=== PATIENT | male | born 1965 | race Caucasian/White ===

== ENCOUNTER 2020-08-24 12:47 | Emergency (ER) | payer MEDICAID ==
[~2020-08-24] VITALS: Ht 180.3 cm; Wt 75.0 kg
--- NOTE | 2020-08-24 15:31 | NUR ---
PT AMB WITH STEADY GAIT TO FAST TRACK
--- NOTE | 2020-08-24 15:41 | NUR ---
PROVIDER AT BEDSIDE
[2020-08-24] MEDS ORDERED: acetaminophen 325mg tablet PO ONE (15:50)
--- NOTE | 2020-08-24 15:54 | NUR ---
PT C/O BURNING WITH URINATION AND URGENCY X2DAYS, HAS NOT BEEN DRINKING WATER BECAUSE IT HURTS TO URINATE, NO FEVER/CHILL, NO N/V, BLADDER SCAN DONE, HAS 450ML IN BLADDER, GAVE PT WATER TO DRINK, PT IS AWARE UA IS NEEDED
[2020-08-24 16:14] VITALS: BP 124/84
--- NOTE | 2020-08-24 16:26 | NUR ---
PT UNABLE TO URINATE, GAVE HIM MORE WATER TO DRINK
--- NOTE | 2020-08-24 18:26 | NUR ---
pt attempting to urinate again
--- NOTE | 2020-08-24 18:41 | NUR ---
inserted anderson with sterile technique, cloudy yellow urine out, sample sent to lab
[2020-08-24 19:06] LABS: CLARITY,URINE SLIGHTLY CLOUDY (Clear); COLOR,URINE YELLOW (Yellow); GLUCOSE, URINE NEGATIVE (Neg); KETONES,URINE NEGATIVE (Neg); LEUKOCYTE ESTERASE ,URINE SMALL (Neg); NITRITES, URINE POSITIVE (Neg); OCCULT BLOOD,URINE LARGE (Neg); PH,URINE 6.5 (4.8-8.0); PROTEIN,URINE TRACE mg/dl (Neg)
[2020-08-24 19:10] LABS: UA COLLECTION TYPE OTHER
[2020-08-24 19:36] LABS: WBC,URINE 50-100 /HPF (0-4)
[2020-08-24 19:37] LABS: BACTERIA,URINE 4+ /HPF (Neg); MUCUS STRANDS MODERATE /LPF (Neg); SPERM FEW /HPF (NEGATIVE); SQUAMOUS EPITHELIAL CELL,UR FEW /LPF (FEW)
[2020-08-24] MEDS ORDERED: CefTRIAXone 1000mg IM Kit (w/lidocaine diluent) IM STA (19:53)
[2020-08-24] MEDS ORDERED: azithromycin 250mg tablet PO ONE (19:55)
[2020-08-24] MEDS ORDERED: CEPH500C2 PO (19:56)
--- NOTE | 2020-08-24 20:33 | NUR ---
CALLED PHONE NUMBER ON [employer], WRONG NUMBER, UNABLE TO CONTACT PT TO HAVE HIM RETURN FOR ANTIBIOTIC SHOT, DR FLORES AWARE PT DID NOT RECEIVE ANTIBIOTIC IN ER, PT DOES HAVE PRESCRIPTION FOR ANTIBIOTIC AND IS GOING TO FOLLOW UP WITH UROLOGIST
--- NOTE | 2020-08-27 11:48 | NUR ---
ATTEMPTED TO CALL PT AT PROVIDED PHONE# TO CHECK ON HIS STATUS. THE PHONE # ON RECORD IS NOT THE PT'S PHONE #. CALLED THE PHONE # OF [facility]EXT [facility], NO ANSWER AND MESSAGE LEFT.
== END 2020-08-24 20:39 | disposition home or self-care (01) ==
LOC: ER 12:47
DX: N39.0 Urinary tract infection, site not specified (principal); R33.9 Retention of urine, unspecified; R10.30 Lower abdominal pain, unspecified; R30.9 Painful micturition, unspecified; Z88.6 Allergy status to analgesic agent
CPT/HCPCS: 36415; 51702; 81001; 87077; 87088; 87186; 87491; 99284

== ENCOUNTER 2020-08-27 13:52 | Emergency (ER) | payer SELFPAY ==
[~2020-08-27] VITALS: Ht 180.3 cm; Wt 75.0 kg
[~2020-08-27 13:52] MED LIST: CEPH500C2 PO
[2020-08-27 14:06] VITALS: BP 123/76
--- NOTE | 2020-08-27 14:41 | NUR ---
BLACK CATH REMOVED PER PA ORDER, NO DIFFICULTY. PT GIVEN URINAL, INSTRUCTED TO GIVE URINE SAMPLE IF ABLE
== END 2020-08-27 15:32 | disposition home or self-care (01) ==
LOC: ER 13:52
DX: T83.038A Leakage of other urinary catheter, initial encounter (principal); F17.200 Nicotine dependence, unspecified, uncomplicated; Z72.89 Other problems related to lifestyle; Z88.6 Allergy status to analgesic agent; Z79.899 Other long term (current) drug therapy; Y84.6 Urinary catheterization as the cause of abnormal reaction of the patient, or of later complication, without mention of misadventure at the time of the procedure; Y92.89 Other specified places as the place of occurrence of the external cause
CPT/HCPCS: 99284

== ENCOUNTER 2022-06-27 16:18 | Emergency (ER) | payer OTHER, MEDICAID ==
[~2022-06-27] VITALS: Ht 180.3 cm; Wt 75.0 kg
[2022-06-27 16:21] VITALS: BP 104/71
== END 2022-06-27 21:20 | disposition home or self-care (01) ==
LOC: ER 16:19
DX: M25.511 Pain in right shoulder (principal); F17.200 Nicotine dependence, unspecified, uncomplicated; Z88.6 Allergy status to analgesic agent
CPT/HCPCS: 73030; 73060; 99284; A4565